=== PATIENT | female | born 1995 | race African-American/Black ===

== ENCOUNTER → 2018-11-17 | Outpatient (REF) | payer OTHER ==
[~2018-11-17] MED LIST: DICL75TA PO
[2018-11-17 15:18] LABS: URINE PREG TEST NEGATIVE (NEGATIVE)
== END ==
LOC: M LAB REF 14:51
PROVIDERS: ATTEND Physician Assistant
DX: N91.2 Amenorrhea, unspecified (principal); R11.0 Nausea

== ENCOUNTER 2018-11-23 17:01 | Emergency (ER) | payer OTHER ==
[~2018-11-23] VITALS: Ht 165.1 cm; Wt 58.2 kg
[2018-11-23 17:38] LABS: HEMATOCRIT 38.6 % (36.0-47.0); HEMOGLOBIN 12.5 g/dl (12.0-15.5); MEAN CORPUSCULAR HEMOGLOBIN 28.8 pg (27.0-33.0); MEAN CORPUSCULAR HGB CONC 32.4 g/dl (32.0-36.5); MEAN CORPUSCULAR VOLUME 88.9 fl (80.0-96.0); PLATELET COUNT, AUTOMATED 247 10^3/uL (150-450); RED BLOOD COUNT 4.34 10^6/uL (4.00-5.40); WHITE BLOOD COUNT 4.3 10^3/uL (4.0-10.0)
[2018-11-23 18:02] LABS: BLOOD UREA NITROGEN 13 MG/DL (7-18); CARBON DIOXIDE LEVEL 28 MEQ/L (21-32); CHLORIDE LEVEL 106 MEQ/L (98-107); CREATININE FOR GFR 0.75 MG/DL (0.55-1.30); GLOMERULAR FILTRATION RATE > 60.0 (>60); GLUCOSE, FASTING 86 MG/DL (70-100); MAGNESIUM LEVEL 2.3 MG/DL (1.8-2.4); POTASSIUM SERUM 3.7 MEQ/L (3.5-5.1); SODIUM LEVEL 140 MEQ/L (136-145)
[2018-11-23] MEDS ORDERED: DICL75TA PO (19:19)
--- NOTE | 2018-11-23 19:26 | REP ---
CHEST, TWO VIEWS: There is no evidence of acute infiltrate. No pleural effusion is seen. The heart is normal in size. The mediastinal silhouette is unremarkable. The visualized osseous structures are intact. IMPRESSION: No acute pulmonary disease. Electronically Signed by Rashaun Cortés MD 11/23/2018 08:11 P
[2018-11-23 19:27] VITALS: BP 143/82
--- NOTE | 2018-11-24 02:57 | ECGEPIP ---
Stationary ECG Study [facility] - ED Test Date: 2018-11-23 Pat Name: COOKIE BOYLE Department: Room: - Gender: F Spiritual Advisor: : [id number] Requested By: Hanna Connors Order Number: [id number] Reading MD: Gomez Carvalho Measurements Intervals [place] Rate: 82 P: 71 TN: 137 QRS: 53 QRSD: 97 T: 47 QT: 376 QTc: 440 Interpretive Statements SINUS RHYTHM NSTTW ABNORMALITIES NO PRIORS FOR COMPARISON Electronically Signed On 11-24-2018 2:57:24 EST by Gomez Carvalho
== END 2018-11-23 19:29 | disposition home or self-care (01) ==
LOC: M ED 17:01
DX: M94.0 Chondrocostal junction syndrome [Tietze] (principal); I10 Essential (primary) hypertension; E83.42 Hypomagnesemia